=== PATIENT | male | born 1970 | race Two or more races ===

== ENCOUNTER 2020-01-08 17:05 | Inpatient (IN) | payer MEDICARE, MEDICAID ==
[~2020-01-08] VITALS: Ht 165.1 cm; Wt 76.8 kg
[2020-01-08] MEDS ORDERED: PANTOPRAZOLE SODIUM 40 MG/VIAL IV STA (17:41)
[2020-01-08] MEDS ORDERED: OCTREOTIDE 1,000 MCG in SODIUM CHLORIDE 0.9% 100 ML IV STA (17:41)
[2020-01-08] MEDS ORDERED: ONDANSETRON HCL 4MG/2ML INJ IV STA (17:41)
[2020-01-08] MEDS ORDERED: OCTREOTIDE ACETATE 50 MCG/ML 1ML IV STA (17:41)
[2020-01-08] MEDS ORDERED: SODIUM CHLORIDE 0.9% 1,000 ML IV ONE (17:41)
[2020-01-08] MEDS ORDERED: PANTOPRAZOLE 80 MG in SODIUM CHLORIDE 0.9% 100 ML IV STA (17:41)
[2020-01-08 18:02] LABS: CHLORIDE 97 mEq/L (98-107)
[2020-01-08 18:05] LABS: INR 1.1; PROTHROMBIN TIME 12.4 sec (9.6-11.0)
[2020-01-08 18:07] LABS: MEAN CORPUSCULAR HEMOGLOBIN 22.9 pg (28.0-32.0); MEAN CORPUSCULAR VOLUME 76.7 fL (80.0-94.0); MEAN PLATELET VOLUME 9.7 fl (7.4-10.4); PLATELET 135 x1000/uL (130-400); RED BLOOD CELL COUNT 2.84 mill/uL (4.7-6.1); RED CELL DISTRIBUTION WIDTH 21.8 % (11.6-14.6)
[2020-01-08 18:10] LABS: HEMATOCRIT. 21.8 % (42.0-52.0); HEMOGLOBIN. 6.5 g/dL (14.0-18.0)
[2020-01-08] MEDS ORDERED: PANTOPRAZOLE SODIUM 40 MG/VIAL IV ONE (18:13)
[2020-01-08 18:50] LABS: BG BASE EXCESS -3.8 mmol/L (-2.0-2.0); BG CARBOXYHEMOGLOBIN 1.2 % (0.5-1.5); BG DEOXYHEMOGLOBIN 8.1 % (0.0-5.0); BG FRACTION INSPIRED OXYGEN 21; BG HCO3 ACT 21.4 mmol/L (22.0-26.0); BG OXYGEN SATURATION 91.7 % (92.0-98.5); BG OXYHEMOGLOBIN 89.7 % (94.0-97.0); BG PCO2 39.2 mmHg (35.0-45.0); BG PH 7.355 (7.350-7.450); BG PO2 71.9 mmHg (75.0-100.0); BG SAMPLE SITE RIGHT BRACHIAL; BG TOTAL HEMOGLOBIN 6.7 g/dL (12.0-18.0); BG VENT MODE ROOM AIR
[2020-01-08 19:21] LABS: PLATELET ESTIMATE NORMAL
[2020-01-08] MEDS ORDERED: CEFTRIAXONE 2 G PREMIX 50 ML IV ONE (19:30)
[2020-01-08] MEDS ORDERED: SODIUM CHLORIDE 0.9% 1000ML BAG (SEPSIS BOLUS) IV ONE (19:30)
[2020-01-08] MEDS ORDERED: VANCOMYCIN 1 G PREMIX 200 ML IV SCH (20:45)
[2020-01-08] MEDS ORDERED: INSULIN REGULAR (HUMULIN R) 300UNITS/3ML SUBCUT ONE (20:45)
[2020-01-09] VITALS (11 sets, daily range): BP systolic 133–163; BP diastolic 68–97
[2020-01-09] MEDS ORDERED: ACETAMINOPHEN 325MG TABLET PO PRN (06:15)
[2020-01-09] MEDS ORDERED: ONDANSETRON HCL 4MG/2ML INJ IV PRN (06:15)
[2020-01-09] MEDS ORDERED: DEXT 5%/0.9% NACL KCL 20MEQ/L 1,000 ML IV SCH (08:00)
[2020-01-09] MEDS ORDERED: DEXTROSE 50% WATER 50ML SYRINGE IV PRN (08:30)
[2020-01-09] MEDS: PIPERACILLIN/TAZOBACTAM 3.375 G in DEXT 5% WATER 100 ML IV SCH ×3 (08:35→20:11)
[2020-01-09] MEDS: PANTOPRAZOLE SODIUM 40 MG/VIAL IV SCH ×3 (08:50→16:21)
[2020-01-09] MEDS ORDERED: PANTOPRAZOLE SODIUM 40 MG/VIAL IV SCH (09:00)
[2020-01-09] MEDS: VANCOMYCIN 1 G PREMIX 200 ML IV SCH ×2 (09:00→16:22)
[2020-01-09 09:03] LABS: CHLORIDE 105 mEq/L (98-107)
[2020-01-09 09:25] LABS: BASOPHILS % 0.4 % (0.0-2.0); EOSINOPHILS % 1.1 % (0.0-5.0); HEMATOCRIT. 25.4 % (42.0-52.0); HEMOGLOBIN. 8.1 g/dL (14.0-18.0); MEAN CORPUSCULAR HEMOGLOBIN 26.7 pg (28.0-32.0); MEAN CORPUSCULAR VOLUME 83.8 fL (80.0-94.0); MEAN PLATELET VOLUME 9.7 fl (7.4-10.4); NEUTROPHILS % 82.5 % (40.0-76.0); PLATELET 114 x1000/uL (130-400); RED BLOOD CELL COUNT 3.03 mill/uL (4.7-6.1); RED CELL DISTRIBUTION WIDTH 22.9 % (11.6-14.6)
[2020-01-09] MEDS: BLOOD SUGAR DIAGNOSTIC STRIP TEST SCH ×3 (11:13→21:29)
[2020-01-09] MEDS ORDERED: INSULIN GLARGINE UD 100 UNITS/ML SYR SUBCUT NR (12:00)
[2020-01-09] MEDS ORDERED: AMLODIPINE 5MG TABLET PO NR (12:00)
[2020-01-09] MEDS ORDERED: CLONIDINE 0.1MG TABLET PO PRN (12:00)
[2020-01-09] MEDS: INSULIN LISPRO 100 UNITS/ML SUBCUT SCH ×3 (12:22→21:23)
[2020-01-09] MEDS ORDERED: PIPERACILLIN/TAZOBACTAM 3.375 G/VIAL IV SCH (14:00)
[2020-01-09] MEDS: OCTREOTIDE 1,000 MCG in SODIUM CHLORIDE 0.9% 98 ML IV SCH (15:26)
[2020-01-09 18:41] LABS: HEMOGLOBIN 8.3 g/dL (14.0-18.0)
[2020-01-09] MEDS: INSULIN GLARGINE UD 100 UNITS/ML SYR SUBCUT SCH (21:24)
[2020-01-09] MEDS: AMLODIPINE 5MG TABLET PO SCH (21:29)
[2020-01-09 23:11] LABS: CLARITY URINE CLEAR (CLEAR); COLOR URINE YELLOW (YELLOW); KETONES URINE NEGATIVE (NEGATIVE); LEUKOCYTE ESTERASE URINE NEGATIVE (NEGATIVE); NITRITE URINE NEGATIVE (NEGATIVE); OCCULT BLOOD URINE NEGATIVE (NEGATIVE); PROTEIN URINE NEGATIVE (NEGATIVE); SPECIFIC GRAVITY URINE 1.025 (1.005-1.030)
[2020-01-10] VITALS (12 sets, daily range): BP systolic 105–171; BP diastolic 63–91
[2020-01-10] LABS: *AMPHETAMINES SCREEN URINE PRESUMTIVE POSITIVE (NEGATIVE); *BARBITURATES SCREEN URINE NEGATIVE (NEGATIVE); *BENZODIAZEPINES SCREEN URINE NEGATIVE (NEGATIVE); *COCAINE SCREEN URINE NEGATIVE (NEGATIVE); CANNABINOID URINE SCREEN NEGATIVE (NEGATIVE); METHADONE URINE SCREEN NEGATIVE (NEGATIVE); OPIATES URINE SCREEN NEGATIVE (NEGATIVE); PHENCYCLIDINE URINE SCREEN NEGATIVE (NEGATIVE)
[2020-01-10] MEDS: VANCOMYCIN 1 G PREMIX 200 ML IV SCH (00:38)
[2020-01-10] MEDS: PIPERACILLIN/TAZOBACTAM 3.375 G in DEXT 5% WATER 100 ML IV SCH ×4 (02:26→22:28)
[2020-01-10] MEDS: BLOOD SUGAR DIAGNOSTIC STRIP TEST SCH ×4 (06:27→20:59)
[2020-01-10 06:48] LABS: BASOPHILS % 0.8 % (0.0-2.0); EOSINOPHILS % 2.9 % (0.0-5.0); HEMATOCRIT. 24.5 % (42.0-52.0); LYMPHOCYTES % 17.4 % (20.0-50.0); MEAN CORPUSCULAR HEMOGLOBIN 26.8 pg (28.0-32.0); MEAN CORPUSCULAR VOLUME 82.2 fL (80.0-94.0); MEAN PLATELET VOLUME 9.1 fl (7.4-10.4); MONOCYTES % 8.7 % (2.0-8.0); NEUTROPHILS % 70.2 % (40.0-76.0); PLATELET 131 x1000/uL (130-400); RED BLOOD CELL COUNT 2.99 mill/uL (4.7-6.1); RED CELL DISTRIBUTION WIDTH 24.5 % (11.6-14.6)
[2020-01-10 07:00] LABS: CHLORIDE 99 mEq/L (98-107)
[2020-01-10 07:07] LABS: VANCOMYCIN TROUGH 11.9 ug/mL (5.0-10.0)
[2020-01-10] MEDS: INSULIN LISPRO 100 UNITS/ML SUBCUT SCH ×4 (07:20→20:59)
[2020-01-10] MEDS: OCTREOTIDE 1,000 MCG in SODIUM CHLORIDE 0.9% 98 ML IV SCH (10:40)
[2020-01-10] MEDS: AMLODIPINE 5MG TABLET PO SCH ×2 (10:41→20:59)
[2020-01-10] MEDS: INSULIN GLARGINE UD 100 UNITS/ML SYR SUBCUT SCH ×2 (10:51→22:28)
[2020-01-10] MEDS: PANTOPRAZOLE SODIUM 40 MG/VIAL IV SCH ×2 (10:54→17:55)
[2020-01-10] MEDS: VANCOMYCIN 1250MG in DEXTROSE 5% WATER 250ML IV SCH ×2 (12:40→19:54)
[2020-01-11] VITALS (12 sets, daily range): BP systolic 102–149; BP diastolic 65–87
[2020-01-11] MEDS ORDERED: MORPHINE SULFATE 2 MG/ML CPJ (NOT FOR IM USE) IV PRN ×2 (01:45→08:45)
[2020-01-11] MEDS: PIPERACILLIN/TAZOBACTAM 3.375 G in DEXT 5% WATER 100 ML IV SCH ×4 (04:15→20:42)
[2020-01-11] MEDS: VANCOMYCIN 1250MG in DEXTROSE 5% WATER 250ML IV SCH ×3 (05:35→21:26)
[2020-01-11] MEDS: OCTREOTIDE 1,000 MCG in SODIUM CHLORIDE 0.9% 98 ML IV SCH ×2 (06:00→10:31)
[2020-01-11 06:49] LABS: HEMATOCRIT 24.6 % (42.0-52.0); HEMOGLOBIN 8.2 g/dL (14.0-18.0)
[2020-01-11] MEDS: BLOOD SUGAR DIAGNOSTIC STRIP TEST SCH ×4 (06:49→21:11)
[2020-01-11] MEDS: INSULIN LISPRO 100 UNITS/ML SUBCUT SCH ×4 (07:20→21:00)
[2020-01-11 07:30] LABS: CHLORIDE 101 mEq/L (98-107)
[2020-01-11] MEDS ORDERED: GLYCOPYRROLATE 0.2 MG/ML 2ML VIAL ONE ×2 (07:33→08:30)
[2020-01-11] MEDS ORDERED: FENTANYL CITRATE/PF 50MCG/ML 2ML VIAL ONE ×2 (07:33→08:21)
[2020-01-11] MEDS ORDERED: ROCURONIUM BROMIDE 10MG/ML VIAL 5ML IV ONE (07:33)
[2020-01-11] MEDS ORDERED: MIDAZOLAM HCL 2 MG/2 ML VIAL ONE (07:33)
[2020-01-11] MEDS ORDERED: PROPOFOL 200MG/20ML VIAL IV ONE (07:33)
[2020-01-11] MEDS ORDERED: NEOSTIGMINE METHYLSULFATE 1MG/ML 10 ML VIAL ONE (07:33)
[2020-01-11] MEDS ORDERED: BACITRACIN 50,000 UNITS/VIAL ONE (07:35)
[2020-01-11] MEDS ORDERED: BUPIVACAINE HCL 0.5% (5MG/ML) 50ML ONE (07:35)
[2020-01-11] MEDS ORDERED: LIDOCAINE HCL 1% 20ML VIAL (Pyxis) INJ ONE (07:35)
[2020-01-11 07:38] LABS: VANCOMYCIN TROUGH 12.1 ug/mL (5.0-10.0)
[2020-01-11] MEDS ORDERED: ONDANSETRON HCL 4MG/2ML INJ ONE (08:18)
[2020-01-11] MEDS ORDERED: ALBUMIN HUMAN 12.5G/250ML (5%) IV ONE (08:29)
[2020-01-11] MEDS ORDERED: SODIUM CHLORIDE 0.9% 1,000 ML IV ONE (08:42)
[2020-01-11] MEDS ORDERED: MEPERIDINE HCL/PF 25MG/ML CPJ IV PRN (08:45)
[2020-01-11] MEDS ORDERED: HYDROMORPHONE HCL/PF 2MG/ML CPJ IV PRN (08:45)
[2020-01-11] MEDS ORDERED: ONDANSETRON HCL 4MG/2ML INJ IV PRN (08:45)
[2020-01-11] MEDS: KETOROLAC 30MG/ML VIAL IV SCH ×3 (09:06→21:16)
[2020-01-11] MEDS: PANTOPRAZOLE SODIUM 40 MG/VIAL IV SCH ×2 (10:10→17:35)
[2020-01-11] MEDS: AMLODIPINE 5MG TABLET PO SCH ×2 (10:11→21:17)
[2020-01-11] MEDS: INSULIN GLARGINE UD 100 UNITS/ML SYR SUBCUT SCH ×2 (10:23→21:25)
[2020-01-12] VITALS (13 sets, daily range): BP systolic 113–145; BP diastolic 72–105
[2020-01-12] MEDS: PIPERACILLIN/TAZOBACTAM 3.375 G in DEXT 5% WATER 100 ML IV SCH ×4 (01:54→20:30)
[2020-01-12] MEDS: KETOROLAC 30MG/ML VIAL IV SCH ×4 (02:54→21:26)
[2020-01-12 04:12] LABS: CHLORIDE 104 mEq/L (98-107)
[2020-01-12 04:21] LABS: VANCOMYCIN TROUGH 19.4 ug/mL (5.0-10.0)
[2020-01-12 05:57] LABS: BASOPHILS % 1.2 % (0.0-2.0); EOSINOPHILS % 6.8 % (0.0-5.0); HEMATOCRIT. 23.6 % (42.0-52.0); HEMOGLOBIN. 7.6 g/dL (14.0-18.0); LYMPHOCYTES % 20.7 % (20.0-50.0); MEAN CORPUSCULAR HEMOGLOBIN 26.8 pg (28.0-32.0); MEAN PLATELET VOLUME 9.1 fl (7.4-10.4); MONOCYTES % 7.9 % (2.0-8.0); NEUTROPHILS % 63.4 % (40.0-76.0); PLATELET 150 x1000/uL (130-400); RED BLOOD CELL COUNT 2.84 mill/uL (4.7-6.1); RED CELL DISTRIBUTION WIDTH 24.4 % (11.6-14.6)
[2020-01-12] MEDS: VANCOMYCIN 1250MG in DEXTROSE 5% WATER 250ML IV SCH (06:03)
[2020-01-12] MEDS: BLOOD SUGAR DIAGNOSTIC STRIP TEST SCH ×4 (06:32→21:26)
[2020-01-12] MEDS: INSULIN LISPRO 100 UNITS/ML SUBCUT SCH ×4 (07:20→21:24)
[2020-01-12] MEDS: AMLODIPINE 5MG TABLET PO SCH ×2 (08:27→21:25)
[2020-01-12] MEDS: PANTOPRAZOLE SODIUM 40 MG/VIAL IV SCH ×2 (08:27→16:58)
[2020-01-12] MEDS: INSULIN GLARGINE UD 100 UNITS/ML SYR SUBCUT SCH ×2 (10:25→21:23)
[2020-01-12] MEDS: OCTREOTIDE 1,000 MCG in SODIUM CHLORIDE 0.9% 98 ML IV SCH (12:41)
[2020-01-12] MEDS ORDERED: PROPOFOL 200MG/20ML VIAL IV ONE ×2 (15:17→15:18)
[2020-01-12] MEDS ORDERED: LIDOCAINE HCL 1% 20ML VIAL (Pyxis) INJ ONE (15:17)
[2020-01-12] MEDS ORDERED: CEFAZOLIN SODIUM 1000MG/VIAL ONE (15:44)
[2020-01-12] MEDS: HYDROCODONE/ACETAMINOPHEN 10/325MG TABLET PO PRN (16:58)
[2020-01-12] MEDS: VANCOMYCIN 1500MG in DEXTROSE 5% WATER 250ML IV SCH (19:00)
[2020-01-13] VITALS (12 sets, daily range): BP systolic 112–145; BP diastolic 64–90
[2020-01-13] MEDS: PIPERACILLIN/TAZOBACTAM 3.375 G in DEXT 5% WATER 100 ML IV SCH ×4 (02:10→20:42)
[2020-01-13] MEDS: KETOROLAC 30MG/ML VIAL IV SCH (03:06)
[2020-01-13] MEDS: BLOOD SUGAR DIAGNOSTIC STRIP TEST SCH ×4 (06:22→20:44)
[2020-01-13] MEDS: VANCOMYCIN 1500MG in DEXTROSE 5% WATER 250ML IV SCH ×2 (06:23→17:53)
[2020-01-13 06:28] LABS: BASOPHILS % 0.7 % (0.0-2.0); EOSINOPHILS % 6.3 % (0.0-5.0); HEMATOCRIT. 23.2 % (42.0-52.0); HEMOGLOBIN. 7.5 g/dL (14.0-18.0); LYMPHOCYTES % 23.1 % (20.0-50.0); MEAN CORPUSCULAR HEMOGLOBIN 26.9 pg (28.0-32.0); MEAN CORPUSCULAR VOLUME 83.4 fL (80.0-94.0); MEAN PLATELET VOLUME 8.9 fl (7.4-10.4); MONOCYTES % 10.9 % (2.0-8.0); PLATELET 152 x1000/uL (130-400); RED BLOOD CELL COUNT 2.79 mill/uL (4.7-6.1); RED CELL DISTRIBUTION WIDTH 24.3 % (11.6-14.6)
[2020-01-13] MEDS: INSULIN LISPRO 100 UNITS/ML SUBCUT SCH ×4 (08:07→21:31)
[2020-01-13] MEDS: THIAMINE HCL 100MG TABLET PO SCH (08:08)
[2020-01-13] MEDS: AMLODIPINE 5MG TABLET PO SCH ×2 (08:09→20:41)
[2020-01-13] MEDS: PANTOPRAZOLE SODIUM 40 MG/VIAL IV SCH ×2 (08:09→17:53)
[2020-01-13] MEDS: FOLIC ACID 1MG TABLET PO SCH (08:09)
[2020-01-13] MEDS: INSULIN GLARGINE UD 100 UNITS/ML SYR SUBCUT SCH ×2 (10:40→21:31)
[2020-01-13] MEDS ORDERED: AMLO5TAB88 PO (11:06)
[2020-01-13] MEDS ORDERED: OMEP40CA12 MT (11:06)
[2020-01-13] MEDS ORDERED: LANTUSUD SUBCUT (11:06)
[2020-01-13] MEDS ORDERED: THIA100T72 PO (11:06)
[2020-01-13 12:28] LABS: TOTAL IRON BINDING CAPACITY 324 ug/dL (250-450)
[2020-01-13] MEDS ORDERED: SULF-288 MT (13:25)
[2020-01-13] MEDS: OCTREOTIDE 1,000 MCG in SODIUM CHLORIDE 0.9% 98 ML IV SCH (14:59)
[2020-01-14] VITALS (11 sets, daily range): BP systolic 102–147; BP diastolic 54–88
[2020-01-14] MEDS: PIPERACILLIN/TAZOBACTAM 3.375 G in DEXT 5% WATER 100 ML IV SCH ×2 (02:14→08:00)
[2020-01-14] MEDS: VANCOMYCIN 1500MG in DEXTROSE 5% WATER 250ML IV SCH (06:12)
[2020-01-14] MEDS: BLOOD SUGAR DIAGNOSTIC STRIP TEST SCH ×3 (06:20→16:12)
[2020-01-14] MEDS: INSULIN LISPRO 100 UNITS/ML SUBCUT SCH ×3 (07:57→16:20)
[2020-01-14] MEDS: PANTOPRAZOLE SODIUM 40 MG/VIAL IV SCH ×2 (07:57→16:18)
[2020-01-14] MEDS: THIAMINE HCL 100MG TABLET PO SCH (07:59)
[2020-01-14] MEDS: FOLIC ACID 1MG TABLET PO SCH (07:59)
[2020-01-14] MEDS: AMLODIPINE 5MG TABLET PO SCH (08:00)
[2020-01-14] MEDS: INSULIN GLARGINE UD 100 UNITS/ML SYR SUBCUT SCH (09:32)
[2020-01-14] MEDS ORDERED: PROPRANOLOL HCL 10MG TABLET PO SCH (10:15)
[2020-01-14] MEDS ORDERED: FERR325T6 MT (11:17)
[2020-01-14] MEDS ORDERED: DOCU250C14 MT (11:17)
[2020-01-14] MEDS ORDERED: PROP10TA10 MT (13:11)
[2020-01-14] MEDS ORDERED: VANCOMYCIN 1250MG in DEXTROSE 5% WATER 250ML IV SCH (16:00)
[2020-01-14] MEDS: HYDROCODONE/ACETAMINOPHEN 10/325MG TABLET PO PRN (16:19)
[2020-01-14] MEDS ORDERED: INSULIN GLARGINE UD 100 UNITS/ML SYR SUBCUT SCH (22:00)
== END 2020-01-14 19:56 | disposition home health service (06) | DRG 853 ==
LOC: ER 17:05 → MICUSO 19:32 → EDBEDREQTM 19:39 → EDBEDREQ 19:39 → 3WST 01-09 00:23
PROVIDERS: ADMIT Internal Medicine; ATTEND Internal Medicine
PROC: 30233N1 Transfusion of Nonautologous Red Blood Cells into Peripheral Vein, Percutaneous Approach (ICD-10-PCS; 2020-01-08)
PROC: 0JB50ZZ Excision of Left Neck Subcutaneous Tissue and Fascia, Open Approach (ICD-10-PCS; principal; 2020-01-11)
PROC: 0DB68ZX Excision of Stomach, Via Natural or Artificial Opening Endoscopic, Diagnostic (ICD-10-PCS; 2020-01-12)
DX: A41.9 Sepsis, unspecified organism (principal); E43 Unspecified severe protein-calorie malnutrition; K29.71 Gastritis, unspecified, with bleeding; E87.1 Hypo-osmolality and hyponatremia; E87.2 Acidosis; I85.10 Secondary esophageal varices without bleeding; K76.6 Portal hypertension; L02.11 Cutaneous abscess of neck; D62 Acute posthemorrhagic anemia; E87.8 Other disorders of electrolyte and fluid balance, not elsewhere classified; I10 Essential (primary) hypertension; E11.65 Type 2 diabetes mellitus with hyperglycemia; K21.9 Gastro-esophageal reflux disease without esophagitis; L02.13 Carbuncle of neck; E88.09 Other disorders of plasma-protein metabolism, not elsewhere classified; E11.43 Type 2 diabetes mellitus with diabetic autonomic (poly)neuropathy; K31.84 Gastroparesis; F15.90 Other stimulant use, unspecified, uncomplicated; F17.210 Nicotine dependence, cigarettes, uncomplicated; K70.30 Alcoholic cirrhosis of liver without ascites; F10.20 Alcohol dependence, uncomplicated; Z03.818 Encounter for observation for suspected exposure to other biological agents ruled out; Z71.41 Alcohol abuse counseling and surveillance of alcoholic; Z71.6 Tobacco abuse counseling; Z68.28 Body mass index [BMI] 28.0-28.9, adult
CPT/HCPCS: 36415; 36600; 71045; 76700; 80048; 80053; 80202; 80305; 81003; 82375; 82728; 82805; 82962; 83036; 83540; 83550; 83605; 84145; 85014; 85018; 85025; 86850; 86900; 86920; 87070; 87075; 87077; 88305; 88312; 88313; 93005; 96374; 99291; C9113; J0690; J0696; J1815; J1885; J2250; J2270; J2354; J2405; J2543; J2704; J2710; J3010; J3370; J3490; J7030; J7050; J7060; P9016; P9041; U0003-CS